=== PATIENT | female | born 1990 | race Caucasian/White ===

== ENCOUNTER → 2020-02-25 | Outpatient (CLI) | payer SELFPAY | LOC: MC.RAD 10:49 | DX: N60.02 Solitary cyst of left breast (principal) ==

== ENCOUNTER → 2020-03-07 | Outpatient (CLI) | payer SELFPAY ==
[~2020-03-07] MED LIST: BACTRIM 400 MG-1 TAB; BIRTH CONTROL PILLS; MAKENA250 MG/ML IM; PRENATAL1 TA1 PO
== END ==
LOC: MC.RAD 07:56
DX: N63.20 Unspecified lump in the left breast, unspecified quadrant (principal); R92.0 Mammographic microcalcification found on diagnostic imaging of breast
CPT/HCPCS: 30634